=== PATIENT | female | born 1950 | race Caucasian/White ===

== ENCOUNTER 2025-08-17 10:40 | Outpatient (CLI) | payer MEDICARE | END 2025-08-17 10:41 | disposition home or self-care (01) | LOC: CSHMAMMO 10:40 | PROVIDERS: ATTEND Specialist | PROC: BH00ZZZ Plain Radiography of Right Breast (ICD-10-PCS; principal; 2025-08-17) | DX: C50.911 Malignant neoplasm of unspecified site of right female breast (principal) | CPT/HCPCS: 19281; 96372; A9697 ==